=== PATIENT | male | born 1955 | race Caucasian/White ===

== ENCOUNTER 2017-08-17 11:45 | Day surgery (SDC) | payer OTHER ==
[~2017-08-17] VITALS: Ht 170.2 cm; Wt 74.5 kg
[~2017-08-17 11:45] MED LIST: Flomax0.4 MG PO; OXYACE5T PO; Zofran8 MG PO
[2017-08-17] MEDS ORDERED: LISI5 (11:58)
== END 2017-08-17 13:52 | disposition home or self-care (01) ==
LOC: ORSCSDS 11:45
PROVIDERS: Internal Medicine Gastroenterology
PROC: 0DBM8ZX Excision of Descending Colon, Via Natural or Artificial Opening Endoscopic, Diagnostic (ICD-10-PCS; principal; 2017-08-17 13:00)
DX: R10.84 Generalized abdominal pain (principal); D12.4 Benign neoplasm of descending colon; K57.30 Diverticulosis of large intestine without perforation or abscess without bleeding; Z80.0 Family history of malignant neoplasm of digestive organs; I10 Essential (primary) hypertension; Z79.899 Other long term (current) drug therapy
CPT/HCPCS: 88305

== ENCOUNTER 2025-01-30 11:44 | Day surgery (SDC) | payer OTHER ==
[2025-01-30] VITALS (45 sets, daily range): BP systolic 105–171; BP diastolic 74–100
[~2025-01-30] VITALS: Ht 167.6 cm; Wt 68.1 kg
[~2025-01-30 11:44] MED LIST changes: +LISI5
--- NOTE | 2025-01-30 13:28 | NUR ---
PRE PROCEDURE NOTE PT A&OX4, BREATHING RA, HYPERTENSIVE- PT SKIPPED BP MEDICATION THIS AM. Ambulatory in Day Surgery Patient confirms NPO status and agrees with scheduled surgery. Pre-Op teaching done. Pt verbalizes understanding.
--- NOTE | 2025-01-30 13:34 | NUR ---
01/30/25 1334 Adenike Benedict SCOPE [id number] PINK CONFIRMED AND REVIEWED H&P, MEDCICATIONS, ALLERGIES, MEDICAL HISTORY, RESPIRATORY HISTORY, VITAL SIGNS, 3-LEAD EKG, CONSENTS, AND PHYSICIAN ORDERS. PATIENT CONFIRMS NPO STATUS AND AGREES WITH SCHEDULED PROCEDURE. MONITOR INTACT WITH CONTINUOUS PULSE OXIMETRY, CAPNOGRAPHY, 3-LEAD EKG, INTERMITTENT BP. SUPPLEMENTAL O2 TO BE TITRATED THROUGHOUT PROCEDURE TO MAINTAIN O2 SATURATION ABOVE 90%. PATIENT DETERMINED TO BE ASA APPROPRIATE FOR PROPOFOL SEDATION PRIOR TO START OF PROCEDURE BY DR. TIMMONS
--- NOTE | 2025-01-30 16:36 | NUR ---
Pt denies any SOB/Chest pain before discharge. Discharge instructions reviewed with patient. Patient verbalizes understanding. Copy given to patient to take home. Copies of pt's EKG taken today given to pt to take to their primary care [facility]. enforced any SOB/Chest pain/Dizziness should be treated seriously and to report to urgent care/ER. Patient States Post-Procedure ride home has been arranged. Discharged via wheelchair to private car for ride home.
== END 2025-01-30 16:29 | disposition home or self-care (01) ==
LOC: ORSCMMR 11:44 → ORD 13:15 → ORSCMMR 16:29
PROVIDERS: Family Medicine
PROC: 0DBN8ZX Excision of Sigmoid Colon, Via Natural or Artificial Opening Endoscopic, Diagnostic (ICD-10-PCS; principal; 2025-01-30 13:15)
DX: Z12.11 Encounter for screening for malignant neoplasm of colon (principal); K63.5 Polyp of colon; K64.0 First degree hemorrhoids; I10 Essential (primary) hypertension; E78.5 Hyperlipidemia, unspecified; N40.0 Benign prostatic hyperplasia without lower urinary tract symptoms; Z79.899 Other long term (current) drug therapy
CPT/HCPCS: 84484; 88305; 93005; 93010; J2704; J7120